=== PATIENT | female | born 1995 | race Caucasian/White ===

== ENCOUNTER 2025-07-05 23:53 | Emergency (ER) | payer SELFPAY ==
[~2025-07-05] VITALS: Ht 157.5 cm; Wt 45.6 kg
[2025-07-06] VITALS: O2SAT 100
[2025-07-06] MEDS: HYDROXYZINE 25MG TABLET PO ONE (01:01)
[2025-07-06 02:04] VITALS: BP 107/62; PULSE 82; RESP 16; TEMP 36.5; O2SAT 100
== END 2025-07-06 02:09 | disposition home or self-care (01) ==
LOC: ER 23:53
DX: F41.9 Anxiety disorder, unspecified (principal); R07.9 Chest pain, unspecified
CPT/HCPCS: 71045; 81025; 93005; 99283